=== PATIENT | female | born 1940 | race Caucasian/White ===

== ENCOUNTER 2019-03-11 15:46 | Emergency (ER) | payer MEDICARE, BC ==
--- NOTE | 2019-03-11 16:42 | EDM.PDOC ---
ED HPI GENERAL MEDICAL PROBLEM - General Chief Complaint: Head Injury Stated Complaint: FELL Time Seen by Provider: 03/11/19 16:13 Source of Information: Reports: Patient, Family History Limitations: Reports: No Limitations - History of Present Illness INITIAL COMMENTS - FREE TEXT/NARRATIVE: 89 yo female presents to ER via ambulance after tripping and falling onto face. She had witnessed positive LOC with brief episode of confusion. laceration to her right upper lip. she did fracture right upper tooth. she is visiting the area Right Upper Lip Pain Score (Numeric/FACES): 6 - Related Data Allergies Allergy/AdvReac Type Severity Reaction Status Date / Time No Known Allergies Allergy Verified 03/11/19 15:54 Home Meds: Home Meds Benzonatate 200 mg PO DAILY 03/11/19 [History] Calcium Carbonate/Vitamin D3 [Oyster Shell 250-Vit D3 125 Tb] 1 tab PO DAILY 11/25 [History] Cholecalciferol (Vitamin D3) [Vitamin D3] 1 tab PO DAILY 03/11/19 [History] DULoxetine [Cymbalta] 1 cap PO DAILY 03/11/19 [History] Doxycycline [Vibramycin] 1 tab PO DAILY 03/11/19 [History] Fluticasone Propionate [Flonase Allergy Relief] 1 applic MARYANN DAILY 03/11/19 [ History] Losartan/Hydrochlorothiazide [Losartan-HCTZ 100-12.5 MG] 1 tab PO DAILY [History] Meclizine HCl 12.5 mg PO TID 03/11/19 [History] [place]-3/DHA/Epa/Fish Oil [[place] 3 500 Softgel] 1,800 mg PO DAILY 03/11/19 [ History] Omeprazole 1 tab PO DAILY 03/11/19 [History] Past Medical History HEENT History: Reports: Cataract Cardiovascular History: Reports: Heart Murmur, Hypertension, Other (See Below) Other Cardiovascular History: hole in heart Respiratory History: Reports: Sleep Apnea Gastrointestinal History: Reports: GERD 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: Musculoskeletal History: Reports: Arthritis, Osteoarthritis - Infectious Disease History Infectious Disease History: Reports: Chicken Pox, Measles, Mumps - Past Surgical History HEENT Surgical History: Reports: Cataract Surgery, Tonsillectomy Female Surgical History: Reports: Hysterectomy Musculoskeletal Surgical History: Reports: Knee Replacement Other Musculoskeletal Surgeries/Procedures:: bilateral knee replacement Social & Family History - Tobacco Use Smoking Status *Q: Never Smoker - Caffeine Use Caffeine Use: Reports: Coffee Caffeine Use Comment: rarely - Recreational Drug Use Recreational Drug Use: No ED ROS GENERAL - Review of Systems Review Of Systems: See Below Constitutional: Denies: Fever, Chills Respiratory: Denies: Shortness of Breath, Wheezing Cardiovascular: Denies: Chest Pain GI/Abdominal: Denies: Abdominal Pain Skin: Reports: Wound. Denies: Rash ED EXAM, HEAD INJURY - Physical Exam Exam: See Below Exam Limited By: No Limitations General Appearance: Alert, WD/WN, No Apparent Distress Head: Normocephalic, Facial Abrasions (right cheek), Facial Lacerations (right upper lip through the viviana border), Facial Swelling (mild right cheek) Nexus Criteria: Altered Level of Consciousness (brief after fall). No: Posterior, Midline Cervical Tenderness, Evidence of Intoxication, Focal Neurological Deficit, Painful Distraction Injuries Neck: Paraspinous Muscle Tender, Tender Lateral (right) Respiratory: No Respiratory Distress, Lungs Clear. No: Crackles, Rhonchi, Wheezing Course - Vital Signs Last Recorded V/S: Last Vital Signs Temp 37.3 C 03/11/19 18:21 Pulse 65 03/11/19 18:21 Resp 18 03/11/19 18:21 BP 137/71 03/11/19 18:21 Pulse Ox 95 03/11/19 18:21 - Orders/Labs/Meds Meds: Medications Discontinued Medications Generic Name Dose Route Start Last Admin Trade Name Landen PRN Reason Stop Dose Admin Bacitracin 1 dose 03/11/19 16:48 03/11/19 16:58 Bacitracin Oint 1 Gm TOP 03/11/19 16:49 1 dose ONETIME ONE Administration Lidocaine/Epinephrine 5 ml 03/11/19 16:48 03/11/19 16:58 Xylocaine 1% With Epinephrine 1:100,000 INFILT 03/11/19 16:49 5 ml ONETIME ONE Administration - Radiology Interpretation CT Results Date: 03/11/19 (thin acute subdural hemato) Departure - Departure Time of Disposition: 19:15 Disposition: DC/Tfer to Acute Hospital 02 Condition: Fair Clinical Impression: Subdural hematoma - Discharge Information Referrals: PCP,None [Primary Care Provider] - Forms: ED Department Discharge
[2019-03-11] MEDS: Lidocaine 1% with EPINEPHrine 1:100,000 50 ML MDV INFILT ONE (16:58)
[2019-03-11] MEDS: Bacitracin Oint 1 GM U/D Packet TOP ONE (16:58)
--- NOTE | 2019-03-11 18:11 | CRLCT ---
INDICATION: 78-year-old female. Trauma. TECHNIQUE: CT images were acquired through the cervical spine. Axial sagittal and coronal re-formatted images are obtained. FINDINGS: There is mild mid cervical kyphosis. Sagittal alignment otherwise normal. Multilevel cervical spondylosis no acute fractures are demonstrated. No prevertebral soft tissue swelling. Diffuse bony demineralization. Calcifications in the transverse ligament dorsal to the odontoid process without significant adjacent spinal canal encroachment. IMPRESSION: 1. No evidence of acute cervical spine fracture or traumatic malalignment. 2. Multilevel cervical spondylosis. Please note that all CT scans at this facility use dose modulation, iterative reconstruction, and/or weight-based dosing when appropriate to reduce radiation dose to as low as reasonably achievable. Dictated by Daniel Boo MD @ Mar 11 2019 6:09PM Signed by Dr. Daniel Boo @ Mar 11 2019 6:11PM
--- NOTE | 2019-03-11 18:11 | CRLCT ---
INDICATION: 78-year-old female. Trauma. TECHNIQUE: CT images were acquired from foramen magnum to vertex without contrast. FINDINGS: The lateral 3rd and 4th ventricles normal in size and shape. A thin acute subdural hematoma is noted over the left parietal lobe convexity measuring approximately 4 mm in thickness. There is mild mass effect. No midline shift. No hemorrhage or mass effect is seen in the posterior fossa. The bony calvarium appears intact. Impression : 1) thin acute subdural hematoma is noted over the left parietal convexity with only mild mass effect and no midline shift. 2) findings called to Dr. Paris at 6:05 p.m. Please note that all CT scans at this facility use dose modulation, iterative reconstruction, and/or weight-based dosing when appropriate to reduce radiation dose to as low as reasonably achievable. Dictated by Daniel Boo MD @ Mar 11 2019 6:02PM Signed by Dr. Daniel Boo @ Mar 11 2019 6:09PM
== END 2019-03-11 19:20 ==
LOC: JP.ED 15:46
DX: S06.5X1A Traumatic subdural hemorrhage with loss of consciousness of 30 minutes or less, initial encounter (principal); S01.511A Laceration without foreign body of lip, initial encounter; I10 Essential (primary) hypertension; K21.9 Gastro-esophageal reflux disease without esophagitis; Z79.899 Other long term (current) drug therapy; W01.0XXA Fall on same level from slipping, tripping and stumbling without subsequent striking against object, initial encounter
CPT/HCPCS: 12011; 70450; 72125; 99284-25